=== PATIENT | female | born 1955 | race Caucasian/White ===

== ENCOUNTER 2020-11-18 10:56 | Outpatient (CLI) | payer MEDICARE, MEDICAID, SELFPAY ==
--- NOTE | 2020-11-18 11:09 | MM_ITS ---
WS: [id number] SCREENING DIGITAL MAMMOGRAM WITH CAD HISTORY: SCREENING COMPARISON: 09/17/2019 and 09/05/2018 Bilateral CC and MLO views submitted. Computer aided detection analyzed. Breast composition: There are scattered areas of fibroglandular density. No suspicious masses, microc alcifications or architectural distortion. MM/[place] [id number] IMPRESSION: BI-RADS: 1-Negative FOLLOW UP: 1 Year Follow-up
== END 2020-11-18 10:57 | disposition home or self-care (01) ==
LOC: RADSHAW 11:06
PROVIDERS: PCP Family Medicine; Visit Provider Family Medicine
DX: Z12.31 Encounter for screening mammogram for malignant neoplasm of breast (principal)
CPT/HCPCS: 77067

== ENCOUNTER 2022-05-18 13:21 | Outpatient (CLI) | payer MEDICARE, MEDICAID, SELFPAY ==
--- NOTE | 2022-05-18 13:27 | MM_ITS ---
WS: [email or web address] VIEWS: MLO and CC views both breasts. 3D digital tomosynthesis is also included in this exam. Comparison made with prior exam of 09/05/2018, 09/17/2019, 11/18/2020.. Findings: There was no sign of mass, architectural distortion or suspicious calcification in either breast. Sc attered fibroglandular densities MM/[place] [id number] Impression: BI-RADS: 2-Benign FOLLOW-UP: 1 Year Follow-up This mammogram was also analyzed by the Computer Aided Detection System R2 [employer].
--- NOTE | 2022-05-18 13:31 | XR_ITS ---
WS: [email or web address] Exam: XR lumbar spine 2-3V* [id number] Date/Time of Exam: 05/18/2022 1:31 PM Reason For Exam: CHRONIC LOW BACK PAIN No acute fracture or dislocation. Operative fusion and decompression laminectomy at L5-S1 which is in satisfactory alignment. Facet arthropathy at all levels. Osteopenia. A neurostimulator noted along t he left flank region with the leads extending cephalad. XR/XR lumbar spine 2-3V* [id number] IMPRESSION: 1. Stable-appearing interbody fusion at L5-S1 with decompression laminectomy. 2. No acute fracture or malalignment. 3. Degenerative changes and osteopenia.
--- NOTE | 2022-05-18 13:31 | XR_ITS ---
WS: [email or web address] Exam: XR shoulder LT min 2V* [id number] Date/Time of Exam: 05/18/2022 1:31 PM Reason For Exam: PAIN IN L SHOULDER No fracture or dislocation. Normal-appearing soft tissues. Osteopenia noted. XR/XR shoulder LT min 2V* [id number] IMPRESSION: 1. Osteopenia otherwise unremarkable left shoulder.
== END 2022-05-18 13:22 | disposition home or self-care (01) ==
PROVIDERS: PCP Family Medicine; Visit Provider Family Medicine
DX: Z12.31 Encounter for screening mammogram for malignant neoplasm of breast (principal); M54.50 Low back pain, unspecified; G89.29 Other chronic pain; M25.512 Pain in left shoulder; M85.88 Other specified disorders of bone density and structure, other site; M85.812 Other specified disorders of bone density and structure, left shoulder
CPT/HCPCS: 72100; 73030; 77063; 77067

== ENCOUNTER 2022-11-12 12:58 | Outpatient (CLI) | payer MEDICARE, MEDICAID, SELFPAY ==
--- NOTE | 2022-11-12 13:13 | MR_ITS ---
WS: [email or web address] MRI LUMBAR SPINE NONCONTRAST TECHNIQUE: Sagittal T1, T2 and STIR imaging. Axial T1 and T2 imaging. CLINICAL INFORMATION: POSTLAMINECTOMY SYNDROME COMPARISON: None. FINDINGS: Mild lumbar curve. No acute compression. Bony fusion L5-S1 with fusion across the disc space. Laminec eleno defects L5-S1. Spinal canal is patent. Tiny LEFT pericentral protrusion T11-T12 only covered on the sagittal imaging. L1-L2: Normal. L2-L3: Slight retrolisthesis. Mild annular bulging. LEFT foraminal protrusion with a small annular fi ssure. Moderate LEFT foraminal narrowing with impingement on the exiting LEFT L2 nerve root. Spinal c anal and RIGHT foramen are patent. Mild facet arthropathy. L3-L4: Mild annular bulging. Spinal canal and foramen are patent. Mild facet arthropathy. L4-L5: Minimal annular bulging. Moderate facet arthropathy. Spinal canal and foramen are patent. Mode rate facet arthropathy. L5-S1: Interbody bony fusion L5-S1. Spinal canal and foramen are patent. Moderate facet arthropathy. Laminectomy defects. Visualized pelvic bony structures: Normal. Paravertebral soft tissues: Normal. Small infrarenal abdominal aortic aneurysm measuring 3.0 x 3.0 x 5.0 cm AP by transverse by craniocau judy. Adrenal Glands are normal. MR/MR lumbar spine wo con* [id number] IMPRESSION: 1. Mild lumbar curve. No acute compression. 2. Interbody fusion L5-S1 with laminectomy defects. Spinal canal has been deco mpressed. No recurrent stenosis at this level. 3. LEFT foraminal protrusion L2-L3 with a small annular fissure. Impingement o n the exiting LEFT L2 nerve root with moderate LEFT foraminal narrowing. Correl ation LEFT L2 nerve root symptoms. 4. Moderate to advanced facet arthropathy L4-L5. Dorsolateral bony fusion L5-S 1. 5. Infrarenal abdominal aortic aneurysm measuring 3.0 x 3.0 x 5.1 cm AP by tra nsverse by craniocaudal. Recommend further evaluation with CTA.
--- NOTE | 2022-11-12 13:22 | CT_ITS ---
WS: [email or web address] LDCT LUNG CANCER SCREENING HISTORY: HX OF TOBACCO USE/NICOTINE DEPENDENCE, CIGARETTES TECHNIQUE: Axial imaging performed from the apices to 1 cm below the costophrenic angles. Coronal and sagittal reformats are submitted with axial MIP series. All CT scans at [facility] use at least one of these dose optimization techniques: automated exposure control; mA and/or kV adjustment per patient size (includes targeted exams where dose is matched to clinical indication); or iterativ e reconstruction. DLP: 45.49 mGy.cm DIvol: Mean CTDIvol: 0.70 (mGy) COMPARISON: None available. Diagnostic quality: Satisfactory Lungs: Marked hyperinflation with emphysema. No pulmonary mass or nodule. Linear atelectasis RIGHT mi ddle lobe. Heart: Normal size heart with no pericardial effusion.. Other findings: Ectatic thoracic aorta with calcification. Coronary artery calcifications. No adenopa thy. Prior cholecystectomy. Nonobstructing RIGHT renal calcification. Dorsal column stimulator. CT/CT lung screening [id number] IMPRESSION: LUNG-RADS: 1-Negative FOLLOW UP: 12 Month: Continue annual screening with LDCT OTHER FINDINGS (S MODIFIER): None.
== END 2022-11-12 12:59 | disposition home or self-care (01) ==
PROVIDERS: PCP Family Medicine; Visit Provider Family Medicine
DX: Z12.2 Encounter for screening for malignant neoplasm of respiratory organs (principal); Z87.891 Personal history of nicotine dependence; M51.16 Intervertebral disc disorders with radiculopathy, lumbar region; M96.1 Postlaminectomy syndrome, not elsewhere classified
CPT/HCPCS: 71271; 72148

== ENCOUNTER 2023-06-05 10:26 | Outpatient (CLI) | payer MEDICARE, MEDICAID, SELFPAY ==
--- NOTE | 2023-06-05 10:36 | MM_ITS ---
WS: [email or web address] BILATERAL 3D TOMOSYNTHESIS DIGITAL SCREENING MAMMOGRAPHY WITH CAD CLINICAL INFORMATION: SCREENING HISTORY: Screening mammogram. No current complaints. COMPARISON: 2021 TECHNIQUE: Bilateral CC and MLO views. FINDINGS: Scattered fibroglandular densities bilaterally. No suspicious focal mass, asymmetry, calcifications, or architectural distortion. No evidence of malignancy. Incidental lucent centered calcification RIGH T breast. IMPRESSION: MM/[place] [id number] BI-RADS: 2-Benign FOLLOW UP: 1 Year Follow-up Recommend return to annual screening mammography.
== END 2023-06-05 10:27 | disposition home or self-care (01) ==
LOC: RAD 10:27
PROVIDERS: PCP Family Medicine; Visit Provider Family Medicine
DX: Z12.31 Encounter for screening mammogram for malignant neoplasm of breast (principal)
CPT/HCPCS: 77063; 77067

== ENCOUNTER 2024-06-17 10:28 | Outpatient (CLI) | payer MEDICARE, MEDICAID, SELFPAY ==
--- NOTE | 2024-06-17 10:35 | CT_ITS ---
WS: [email or web address] LDCT LUNG CANCER SCREENING TECHNIQUE: Noncontrast CT of the chest with coronal and sagittal reformatted images. CLINICAL INFORMATION: HX OF TOBACCO USE COMPARISON: 2022 DLP: 46.89 mGy.cm DIvol: Mean CTDIvol: 0.80 (mGy) All CT scans at [facility] use at least one of these dose optimization techniques: automat ed exposure control; mA and/or kV adjustment per patient size (includes targeted exams where dose is matched to clinical indication); or iterative reconstruction. FINDINGS: Moderate chronic emphysematous changes. Subsegmental atelectasis in the RIGHT middle lobe. Tiny noncalcified nodule in the lingula. A few tiny calcified granulomas. Stable ectatic thoracic aorta.. CABG. Coronary calcification. No mediastinal or hilar lymphadenopathy . No axillary lymphadenopathy. Partially visualized spinal stimulator. Adrenal glands are normal. Cholecystectomy clips. Normal GE j unction. Mild thoracic kyphosis. Hemangioma upper thoracic spine. Nonobstructing RIGHT renal calculus unchange d. CT/CT lung screening [id number] IMPRESSION: LUNG-RADS: 2-Benign Appearance or Behavior FOLLOW UP: 12 Month: Continue annual screening with LDCT
--- NOTE | 2024-06-17 10:38 | MM_ITS ---
WS: [email or web address] BILATERAL SCREENING DIGITAL TOMOSYNTHESIS MAMMOGRAM WITH CAD HISTORY: SCREENING COMPARISON: 06/05/2023, 05/18/2022 and 11/18/2020 Bilateral CC and MLO views with tomosynthesis and synthetic mammography submitted. Computer aided det ection analyzed. Breast composition: There are scattered areas of fibroglandular density. No suspicious masses, microc alcifications or architectural distortion. Benign calcification lateral RIGHT breast. MM/MM scr BI tomosynthesis [id number] IMPRESSION: BI-RADS: 2 - Benign. FOLLOW UP: 1 Year Follow-up
== END 2024-06-17 10:29 | disposition home or self-care (01) ==
LOC: RAD 10:29
PROVIDERS: PCP Family Medicine; Visit Provider Family Medicine
DX: Z12.31 Encounter for screening mammogram for malignant neoplasm of breast (principal); Z12.2 Encounter for screening for malignant neoplasm of respiratory organs; Z87.891 Personal history of nicotine dependence; R92.323 Mammographic fibroglandular density, bilateral breasts; R92.1 Mammographic calcification found on diagnostic imaging of breast; J43.9 Emphysema, unspecified; J98.11 Atelectasis; R91.1 Solitary pulmonary nodule; I77.810 Thoracic aortic ectasia; Z95.1 Presence of aortocoronary bypass graft; I25.84 Coronary atherosclerosis due to calcified coronary lesion; Z90.49 Acquired absence of other specified parts of digestive tract; K80.20 Calculus of gallbladder without cholecystitis without obstruction; D18.09 Hemangioma of other sites
CPT/HCPCS: 71271; 77063; 77067

== ENCOUNTER 2024-06-22 10:42 | Outpatient (CLI) | payer MEDICARE, MEDICAID, SELFPAY ==
--- NOTE | 2024-06-22 10:48 | CT_ITS ---
WS: [email or web address] CT ABDOMEN AND PELVIS WITH CONTRAST HISTORY: ABDOMINAL PAIN/HIATAL HERNIA TECHNIQUE: Imaging performed of the abdomen and pelvis with IV contrast. Single phase imaging of the abdomen. Coronal and sagittal reformats are submitted. All CT scans at [facility] use at [facility] st one of these dose optimization techniques: automated exposure control; mA and/or kV adjustment per patient size (includes targeted exams where dose is matched to clinical indication); or iterative re construction. IV CONTRAST: Omnipaque 350; 100 mL IV. Oral contrast: Yes DLP: 292.28 mGy.cm COMPARISON: None available. Lower thorax: Lung bases are clear. Heart is normal size. No hiatal hernia. Liver/biliary system: Normal size liver. Focal fatty sparing along the falciform ligament. No intrahe patic duct dilatation. Gallbladder: Cholecystectomy. Pancreas: Normal size pancreas and pancreatic duct. No adjacent inflammation. Spleen: Normal size spleen. No mass or infarct. Scattered granulomata. Adrenal glands: Normal. Right kidney: Normal. Left kidney: Normal. Aorta: Aneurysmal dilatation of the infrarenal aorta. Maximum diameter of 3.2 cm. Near circumferentia l thrombus surrounds a patent lumen. Aneurysm tapers at the bifurcation. Mesenteric arteries are well opacified. Lymphadenopathy: None. Free fluid: None. GI tract: Normal stomach. No small bowel obstruction. Moderate constipation RIGHT colon. No significa nt diverticular disease. Appendix is not identified and may have been surgically removed. Abdominal wall: Supraumbilical abdominal wall hernia contains fat only. Orifice of 2.1 cm. Pelvis: Urinary bladder is normally distended. No free fluid or adenopathy. Prior hysterectomy. Bones: No destructive lesions. Dorsal column stimulator electrodes over the mid thoracic spine. CT/CT abdomen pelvis w con* [id number] IMPRESSION: 1. No acute abdominal or pelvic abnormalities. 2. Supraumbilical abdominal wall hernia contains omental fat only. 3. Moderate RIGHT colonic constipation. 4. No renal obstruction. 5. Prior cholecystectomy and hysterectomy. 6. Small abdominal aortic aneurysm, maximal diameter of 3.2 cm.
[2024-06-22 11:24] LABS: Blood Urea Nitrogen 7 mg/dL (8-23); Glomerular Filtration Rate 71.8 mL/min (90-130)
[2024-06-22] MEDS: iohexol 350 mg/mL 500 mL Btl (per mL) PO (11:26)
[2024-06-22] MEDS: iohexol 350 mg/mL 500 mL Btl (per mL) IV (12:07)
== END 2024-06-22 10:43 | disposition home or self-care (01) ==
LOC: RAD 10:43
PROVIDERS: Surgery; PCP Family Medicine; Visit Provider Nurse Practitioner Adult Health
DX: K42.9 Umbilical hernia without obstruction or gangrene (principal); K59.00 Constipation, unspecified; I71.40 Abdominal aortic aneurysm, without rupture, unspecified; Z90.49 Acquired absence of other specified parts of digestive tract; Z87.19 Personal history of other diseases of the digestive system; Z98.891 History of uterine scar from previous surgery; Z90.710 Acquired absence of both cervix and uterus
CPT/HCPCS: 74177; 82565; 84520